=== PATIENT | male | born 1950 | race Caucasian/White ===

== ENCOUNTER 2018-09-26 07:14 | Day surgery (SDC) | payer MEDICARE, OTHER ==
[2018-09-26] VITALS (10 sets, daily range): BP systolic 114–140; BP diastolic 81–94
[~2018-09-26] VITALS: Ht 177.8 cm; Wt 68.0 kg
[~2018-09-26 07:14] MED LIST: FENTANYL TDERMAL; GABAPENTIN300 MG ORAL; HYDROCODON-ACE1 EA13 ORAL; IMODIUM2 MG ORAL; ZOLPIDEM TARTRA10 MG ORAL; ceFAZolin sod 1 GM in NS 55 ML IVPB ONE
[2018-09-26] MEDS ORDERED: cefOXitin 1gm Inj ONE (08:34)
[2018-09-26] MEDS ORDERED: fentaNYL 100 mcg/2 mL IV ONE (08:44)
[2018-09-26] MEDS ORDERED: Midazolam 2mg/2ml Inj ONE (08:45)
[2018-09-26] MEDS ORDERED: Lidocaine 1% MPF 10mg/ml 5ml ONE (08:45)
[2018-09-26] MEDS ORDERED: Propofol 200mg/20ml IV ONE (08:45)
--- NOTE | 2018-09-26 09:29 | Anethesia Preoperative Eval ---
Anesthesia Pre-op PMH/ROS General Date of Evaluation: September 26, 2018 Time of Evaluation: 09:27 Anesthesiologist: Jessica ASA Score: ASA 3 Mallampati Score Class I : Soft palate, uvula, fauces, pillars visible Class II: Soft palate, uvula, fauces visible Class III: Soft palate, base of uvula visible Class IV: Only hard plate visible Mallampati Classification: Class II Surgeon: Rosalia Diagnosis: R hydronephrosis Surgical Procedure: Cysto retrograde pyelogram Anesthesia History: none Social History: current smoker Family History: no anesthesia problems Allergies: Coded Allergies: No Known Allergies (Unverified , 09/26/18) Medications: see eMAR Patient NPO?: Yes Past Medical History Cardiovascular: Denies: HTN, CAD, PR, valve dz, arrhythmia, other Pulmonary: Reports: COPD; Denies: asthma, TAVO, other Gastrointestinal/Genitourinary: Reports: GERD, CRI, other - metastatic colon CA ; Denies: ESRD Neurologic/Psychiatric: Reports: depression/anxiety Endocrine: Denies: DM, hypothyroidism, steroids, other HEENT: Denies: cataract (L), cataract (R), glaucoma, MOAPA (L), MOAPA (R), other Hematology/Immune: Reports: anemia, other - on active chemo; Denies: DVT, bleeding disorder Musculoskeletal/Integumentary: Denies: OA, RA, DJD, DDD, edema, other Other: other - malnouished PMH Narrative: as above PSxH Narrative: bowel resection with R liver lobectomy Anesthesia Pre-op Phys. Exam Physician Exam Last Vital Signs Date Time Temp Pulse Resp B/P (MAP) Pulse Ox O2 Delivery O2 Flow Rate FiO2 09/26/18 07:51 97.6 65 18 136/89 97 Room Air Constitutional: NAD Neurologic: CN 2-12 intact Cardiovascular: RRR, no M/R/G Respiratory: other - some wheezing bilaterally Airway Exam Mallampati Score: Class II MO: full Neck: stiff ROM: limited Teeth: missing Dentures: no upper, no lower Anesthesia Pre-op A/P Labs see chart Studies Pre-op Studies: EKG - NSR Risk Assessment & Plan Assessment: ASA 3 Plan: GA with LMA Status Change Before Surgery: No Pre-Antibiotics Drug: Cefoxitin 1gr. Given Within 1 Hr of Incision: Yes Time Given: 10:02 Carlos Lopez MD September 26, 2018 09:29
[2018-09-26] MEDS ORDERED: Sterile Water For Irrig 2000ml IRRIG ONE (09:30)
[2018-09-26] MEDS ORDERED: LR 1000ml ONE (09:30)
[2018-09-26] MEDS ORDERED: NS Irrig 1000ml ONE (09:30)
[2018-09-26] MEDS ORDERED: LR 1000ml 1,000 ML IVLG SCH (10:06)
[2018-09-26] MEDS ORDERED: Iothalamate Meglumine 60% 30ML INJ ONE (10:11)
[2018-09-26] MEDS ORDERED: Hydromorphone 0.5mg/0.5ml inj IVP PRN (10:15)
[2018-09-26] MEDS ORDERED: DiphenhydrAMINE 50mg/ml Inj IVP PRN (10:15)
[2018-09-26] MEDS ORDERED: Ketorolac 30mg Inj IV PRN (10:15)
--- NOTE | 2018-09-26 11:12 | Pre-Procedure Note/Attestation ---
Pre-Procedure Note/Attestation Complete Prior to Procedure Planned Procedure: right Procedure Narrative: RIRS with Laser RPG stent placement Indications for Procedure Pre-Operative Diagnosis: upj obstruction Attestation I attest that I discussed the nature of the procedure; its benefits; risks and complications; and alternatives (and the risks and benefits of such alternatives ), prior to the procedure, with the patient (or the patient's legal medical claims representative). I attest that, if there was a reasonable possibility of needing a blood transfusion, the patient (or the patient's legal medical claims representative) was given the [facility] standardized written summary, pursuant to the [place] Blood Safety Act ([place] Health and Safety Code # 1645, as amended). I attest that I re-evaluated the patient just prior to the surgery and that there has been no change in the patient's H&P, except as documented below: Howard Lindsey MD September 26, 2018 11:12
[2018-09-26] MEDS ORDERED: HYDROcodone/Acetamin 5/325 tab ORAL PRN (11:15)
[2018-09-26] MEDS ORDERED: Tylenol #3 tab (300mg/30mg) ORAL PRN (11:15)
[2018-09-26] MEDS ORDERED: HYDROmorphone 1mg/ml Carpuject SUBQ PRN (11:15)
--- NOTE | 2018-09-26 11:15 | Brief Operative Note ---
Immediate Post Operative Note Operative Note Pre-op Diagnosis: upj obstruction Procedure: Laser endopylotomy with stent placement right with rpg Post-op Diagnosis: same Post-op Diagnosis: same as pre-op Surgeon: Alejandro Lindsey Anesthesia: general Specimen: none Complications: none Condition: stable Fluids: 500 Estimated Blood Loss: minimal Implant(s) used?: No Howard Lindsey MD September 26, 2018 11:15
--- NOTE | 2018-09-26 11:16 | Immediate Post-Op Evaluation ---
Immediate Post-Op Evalulation Immediate Post-Op Evalulation Procedure: Cysto, retrograde pyeliogram, stent placement Date of Evaluation: September 26, 2018 Time of Evaluation: 11:15 IV Fluids: 800 Blood Products: none Estimated Blood Loss: min Urinary Output: n/a Blood Pressure Systolic: 117 Blood Pressure Diastolic: 68 Pulse Rate: 62 Respiratory Rate: 20 O2 Sat by Pulse Oximetry: 99 Temperature (Fahrenheit): 98.1 Pain Score (1-10): 1 Nausea: No Vomiting: No Complications none Patient Status: reacts, patent, none Hydration Status: adequate Carlos Lopez MD September 26, 2018 11:16
--- NOTE | 2018-09-26 12:03 | Diagnostic Imaging Report ---
Indication: Intraoperative imaging COMPARISON: None FINDINGS: 6 fluoroscopic images were obtained intraoperatively. Images showing ureteroscopy with contrast injection into the right collecting system demonstrating dilated calyces. Stent placement noted. IMPRESSION: Intraoperative imaging as described above
[2018-09-26] MEDS ORDERED: D5 1/2NS 1,000 ML IV SCH (17:00)
--- NOTE | 2018-10-03 02:30 | Operative Note - Dictated ---
DATE OF OPERATION: 09/26/2018 PREOPERATIVE DIAGNOSIS: Right hydronephrosis with UPJ obstruction. POSTOPERATIVE DIAGNOSIS: Right hydronephrosis with UPJ obstruction. OPERATION: Cystoscopy, retrograde intrarenal surgery, laser endopyelotomy, and double-J stent placement. OPERATED BY: Howard Lindsey M.D. ANESTHESIA: General. FINDINGS: Tight stricture most likely due to external compression from previous colorectal surgery with hemoclips and hydronephrosis. INDICATIONS FOR SURGERY: The patient is a cancer survivor with multiple colon surgeries, colorectal and colon cancer developed severe right hydronephrosis. Treatment options were explained to him in great length including all potential complications of surgery. He signed a consent. PROCEDURE IN DETAIL: He was brought to the operating room, placed in lithotomy position, and prepped and draped in standard fashion. Under general anesthesia, cystoscope was introduced into the bladder. The right ureter was found. The bladder was normal. The right ureter was cannulated and a retrograde pyelogram was performed showing a tortuous ureter with a tight obstruction at the UPJ junction of the right kidney with right hydronephrosis. Guidewire was applied and navigated to the right kidney and semi-rigid ureteroscope was introduced and brought all the way up very tight stitches using a 260 micron laser fiber. The stricture was incised the 6-Frisian 26 double-J stent with left indwelling Clifton catheter. The patient tolerated the procedure well. Howard Lindsey M.D. DR: PAYTON JOB#: [id number] CC:
== END 2018-09-26 12:35 | disposition home or self-care (01) ==
LOC: SUR 07:14
DX: N13.2 Hydronephrosis with renal and ureteral calculous obstruction (principal); J44.9 Chronic obstructive pulmonary disease, unspecified; F32.9 Major depressive disorder, single episode, unspecified; F41.9 Anxiety disorder, unspecified; K21.9 Gastro-esophageal reflux disease without esophagitis; N18.9 Chronic kidney disease, unspecified; F17.200 Nicotine dependence, unspecified, uncomplicated; Z85.038 Personal history of other malignant neoplasm of large intestine; Z90.49 Acquired absence of other specified parts of digestive tract
CPT/HCPCS: 52332; 52345; 74420; 76000; J0694; J2250; J2704; J3010; Q9961; 94003; 94150